=== PATIENT | male | born 1980 | race Two or more races ===

== ENCOUNTER 2021-02-19 00:08 | Emergency (ER) | payer OTHER ==
[~2021-02-19] VITALS: Ht 162.6 cm; Wt 61.2 kg
[2021-02-19 00:40] VITALS: BP 153/102
[2021-02-19] MEDS ORDERED: AMOX875T2 PO (00:45)
== END 2021-02-19 01:18 | disposition home or self-care (01) ==
LOC: ER 00:15
DX: K04.7 Periapical abscess without sinus (principal); Z79.899 Other long term (current) drug therapy